=== PATIENT | female | born 1975 | race Caucasian/White ===

== ENCOUNTER 2024-07-01 18:50 | Emergency (ER) | payer MEDICAID ==
[~2024-07-01] VITALS: Ht 154.9 cm; Wt 70.3 kg
[2024-07-01 19:20] VITALS: BP_SYST 166; PULSE 77; RESP 18; TEMP 97.3; O2SAT 97
[2024-07-01] MEDS ORDERED: SULF1TAB48 PO (20:38)
[2024-07-01] MEDS ORDERED: CEPH250C PO (20:39)
[2024-07-01] MEDS ORDERED: HYDR-3921 PO (20:39)
[2024-07-01 20:52] VITALS: BP_SYST 166; PULSE 77; RESP 18; TEMP 97.3; O2SAT 97
[2024-07-02] MEDS ORDERED: HYDR-3927 PO (10:01)
== END 2024-07-01 22:00 | disposition home or self-care (01) ==
LOC: SED 18:50
DX: K12.2 Cellulitis and abscess of mouth (principal); R20.0 Anesthesia of skin; R03.0 Elevated blood-pressure reading, without diagnosis of hypertension; Z79.899 Other long term (current) drug therapy; Z79.2 Long term (current) use of antibiotics
CPT/HCPCS: 70450-TC; 99284